=== PATIENT | male | born 1950 | race Caucasian/White ===

== ENCOUNTER 2020-09-14 02:08 | Emergency (ER) | payer MEDICARE ==
[~2020-09-14] VITALS: Ht 177.8 cm; Wt 100.0 kg
[2020-09-14] MEDS ORDERED: LABETALOL HCL 20MG/4ML CARPUJECT IV ONE (02:45)
[2020-09-14 03:26] LABS: CHLORIDE 108 mEq/L (98-107)
[2020-09-14 03:31] LABS: BASOPHILS % 0.5 % (0.0-2.0); EOSINOPHILS % 2.6 % (0.0-5.0); HEMATOCRIT. 39.1 % (42.0-52.0); HEMOGLOBIN. 13.5 g/dL (14.0-18.0); LYMPHOCYTES % 18.9 % (20.0-50.0); MEAN CORPUSCULAR HEMOGLOBIN 29.6 pg (28.0-32.0); MEAN CORPUSCULAR VOLUME 85.8 fL (80.0-94.0); MEAN PLATELET VOLUME 8.9 fl (7.4-10.4); MONOCYTES % 7.2 % (2.0-8.0); NEUTROPHILS % 70.8 % (40.0-76.0); PLATELET 144 x1000/uL (130-400); RED BLOOD CELL COUNT 4.56 mill/uL (4.7-6.1)
[2020-09-14 05:14] VITALS: BP 158/81
== END 2020-09-14 06:00 | disposition home or self-care (01) ==
LOC: ER 02:08
DX: I16.0 Hypertensive urgency (principal); R00.2 Palpitations; E11.9 Type 2 diabetes mellitus without complications; I10 Essential (primary) hypertension; Z98.890 Other specified postprocedural states
CPT/HCPCS: 36415; 71045; 80053; 83880; 84484; 85025; 93005; 96374; 99285; J3490